=== PATIENT | male | born 2000 | race Caucasian/White ===

== ENCOUNTER 2019-09-05 03:30 | Observation (INO) | payer BC ==
[~2019-09-05] VITALS: Ht 170.2 cm; Wt 70.5 kg
[2019-09-05] VITALS (8 sets, daily range): BP systolic 107–146; BP diastolic 42–59; PULSE 62–85; TEMP 97.8–98.4
[2019-09-05 05:47] LABS: BASO % 0.4 % (0.0-2.0); EOS # 0.1 (0.0-0.7); EOS % 0.8 % (0-4.0); GRAN # 6.7 (1.4-6.5); GRAN % 73.3 % (42.2-75.2); HEMATOCRIT 38.3 % (42.0-52.0); HEMOGLOBIN 13.5 g/dl (13.5-18.0); LYMPH # 1.7 (1.2-3.4); LYMPH % 18.8 % (20.0-51.0); MEAN CELL VOLUME 89 fl (80.0-100.0); MEAN CORPUSCULAR HEMOGLOBIN 31 pg (27.0-31.0); MEAN CORPUSCULAR HGB CONC 35 g/dl (33.0-37.0); MEAN PLATELET VOLUME 12.2 fl (7.4-10.4); MONO # 0.6 (0.1-0.6); MONO % 6.5 % (1.7-9.3); PLATELET COUNT 165 K/mm3 (130-400); REDCELL DISTRIBUTION WIDTH-CV 11.8 % (11.5-14.5)
[2019-09-05 05:57] LABS: ALBUMIN 4.1 gm/dL (3.5-5.0); BILIRUBIN,TOTAL 0.5 mg/dL (0.0-1.0); CALCIUM 8.7 mg/dL (8.4-10.2); CREATININE, serum 0.86 (0.66-1.25); POTASSIUM 3.9 mmol/L (3.4-5.0); TOTAL PROTEIN 6.7 gm/dL (6.4-8.2)
[2019-09-05] MEDS ORDERED: NORCO 325 MG-51 TAB PO (07:42)
--- NOTE | 2019-09-05 07:45 | NUR ---
Patient has been back to the floor since 729 from PACU. Denies nausea. Stated having some increased pain to lower abdomen. Discussed pain control. Explained pain medication ordered and how often he can have it. Family at bedside. Dressing to scrotal inicision is C/D/I. Scant drainage. No other changes at this time. Call light within reach.
--- NOTE | 2019-09-05 12:30 | NUR ---
Patient has been doing well. He was finally able to void, he had about 400ml out of clear yellow urine. Dressing to incision remains C/D/I. Patient stated he felt like sleeping before discharging. Patients family at bedside. No other changes a at this time. Call light within reach.
--- NOTE | 2019-09-05 14:15 | NUR ---
Patient is discharging home. Discharge instructions dicussed with patient. No questions verbalized. INT discontinued. All belongings packed up by patients m other. Copies of discharge instructions sent with patient. Explained patient is to call Saturday for a follow up appointment with Dr Quick. He has a prescription for [facility] to get filled. Encouraged him to wear the scrotal support when he gets home. No questions verbalized. Patient walked out with this nurse.
== END 2019-09-05 14:20 | disposition home or self-care (01) ==
LOC: COL.ER 03:30 → SURG 06:11
PROVIDERS: Emergency Medicine; ADMIT Urology
DX: N44.00 Torsion of testis, unspecified (principal)
CPT/HCPCS: G0378; G0379; J0330; J1100; J2250; J2405; J2704; J3010; J7030